=== PATIENT | female | born 2000 | race Caucasian/White ===

== ENCOUNTER → 2021-04-11 | Outpatient (CLI) | payer OTHER ==
[2021-04-11 17:02] LABS: BASO # 0.1 10^3/uL (0.0-0.2); BASO % 0.6 % (0.0-1.0); EOS # 0.1 10^3/uL (0.0-0.5); EOS % 0.6 % (0.0-3.0); HEMATOCRIT 37.9 % (36.0-47.0); HEMOGLOBIN 12.6 g/dl (12.0-15.5); LYMPH # 1.9 10^3/uL (1.5-5.0); LYMPH % 23.4 % (24.0-44.0); MEAN CORPUSCULAR HEMOGLOBIN 29.2 pg (27.0-33.0); MEAN CORPUSCULAR HGB CONC 33.2 g/dl (32.0-36.5); MEAN CORPUSCULAR VOLUME 87.7 fl (80.0-96.0); MONO # 0.5 10^3/uL (0.0-0.8); MONO % 6.8 % (2.0-8.0); NEUTROPHILS # 5.4 10^3/uL (1.5-8.5); NEUTROPHILS % 68.3 % (36.0-66.0); PLATELET COUNT, AUTOMATED 301 10^3/uL (150-450); RED BLOOD COUNT 4.32 10^6/uL (4.00-5.40); WHITE BLOOD COUNT 7.9 10^3/uL (4.0-10.0)
[2021-04-11 18:09] LABS: HIV 1&2 SCREEN CENTAUR NEGATIVE (NEGATIVE)
[2021-04-11 18:27] LABS: GC DNA AMPLIFICATION NEGATIVE (NEGATIVE)
== END ==
LOC: M PLALAB 15:31
PROVIDERS: ATTEND Advanced Practice Midwife
DX: Z34.81 Encounter for supervision of other normal pregnancy, first trimester (principal); Z3A.10 10 weeks gestation of pregnancy

== ENCOUNTER → 2021-06-18 | Outpatient (CLI) | payer OTHER ==
--- NOTE | 2021-06-18 10:34 | REP ---
INDICATION: ANATOMY COMPARISON: None. TECHNIQUE: Transabdominal obstetrical ultrasound with color Doppler evaluation. FINDINGS: Examination demonstrates a single live intrauterine in cephalic presentation. motion is identified by technologist. Placenta is noted anterior and grade 0 without evidence for placenta previa or abruption. Amniotic fluid volume is normal. Cervix measures 4.6 cm in length and appears closed.. Selected gestational age: 20 weeks 0 days with LESLEY 11/05/2021. Gestational age by current measurements 20 weeks 0 days with LESLEY 11/05/2021. FHR equals 142 beats per minute. BPD: 4.6 cm at 20 weeks 0 days HC: 17.5 cm at 20 weeks 0 days AC: 15.3 cm at 20 weeks 4 days FL: 3.2 cm at 20 weeks 0 days HL: 3.0 cm at 19 weeks 5 days HC/AC: 1.14 Estimated weight 342 grams (58thpercentile). Anatomical assessment demonstrates normal structures including cavum, cerebellum/posterior fossa, facial features, lungs, four-chamber heart/ventricular outflow tracts, diaphragm, stomach, cord insertion/three-vessel cord, kidneys/bladder, spine, and extremities. Small left choroid plexus cyst noted. Technologist describes a possibility of "lemon sign" to the cranium but without significant associated abnormalities to the visualized posterior fossa, spinal canal/cord. IMPRESSION: 1. Single live intrauterine in cephalic presentation demonstrating appropriate estimated weight/growth. 2. Small left choroid plexus cyst and the possibility of "lemon sign" to the cranium warrant short-term follow-up re-evaluation. Remainder of the anatomical assessment is complete and normal. <Electronically signed by Joe Jay > 06/18/21 [id number]
== END ==
LOC: M WHC 09:49
PROVIDERS: ATTEND Obstetrics & Gynecology
DX: O28.3 Abnormal ultrasonic finding on antenatal screening of mother (principal); Z36.89 Encounter for other specified antenatal screening; Z3A.20 20 weeks gestation of pregnancy

== ENCOUNTER → 2021-07-18 | Outpatient (CLI) | payer OTHER | LOC: M PLALAB 14:41 | PROVIDERS: ATTEND Advanced Practice Midwife | DX: O28.3 Abnormal ultrasonic finding on antenatal screening of mother (principal) ==

== ENCOUNTER → 2021-08-06 | Outpatient (CLI) | payer OTHER ==
--- NOTE | 2021-08-06 08:37 | REP ---
INDICATION: F/U COMPARISON: 06/18/2021 TECHNIQUE: Transabdominal obstetrical ultrasound with color Doppler evaluation. FINDINGS: Examination demonstrates a single live intrauterine in cephalic presentation. motion is identified by technologist. Placenta is noted anterior and grade 1 without evidence for placenta previa or abruption. Amniotic fluid volume is normal. Cervix measures 4.9 cm in length and appears closed.. Selected gestational age: 27 weeks 0 days with LESLEY 11/05/2021. Gestational age by current measurements 28 weeks 1 day with LESLEY 10/28/2021. FHR equals 129 beats per minute. Estimated weight 1144 grams (73rdpercentile). Anatomical assessment demonstrates normal structures including cranium and the previously questioned "lemon sign" is no longer suggested. Previous choroid plexus cyst resolved. IMPRESSION: Single live intrauterine in cephalic presentation demonstrating appropriate interval growth. No anatomical abnormalities are identified. <Electronically signed by Joe Jay > 08/06/21 0830
== END ==
LOC: M WHC 07:32
PROVIDERS: ATTEND Advanced Practice Midwife
DX: Z34.82 Encounter for supervision of other normal pregnancy, second trimester (principal); Z36.2 Encounter for other antenatal screening follow-up; Z3A.27 27 weeks gestation of pregnancy

== ENCOUNTER → 2021-09-03 | Outpatient (CLI) | payer OTHER ==
[2021-09-03 14:22] LABS: HEMOGLOBIN 11.2 g/dl (12.0-15.5); MEAN CORPUSCULAR HEMOGLOBIN 29.7 pg (27.0-33.0); MEAN CORPUSCULAR HGB CONC 32.9 g/dl (32.0-36.5); MEAN CORPUSCULAR VOLUME 90.2 fl (80.0-96.0); PLATELET COUNT, AUTOMATED 286 10^3/uL (150-450); RED BLOOD COUNT 3.77 10^6/uL (4.00-5.40); WHITE BLOOD COUNT 7.6 10^3/uL (4.0-10.0)
== END ==
LOC: M PLALAB 09:50
PROVIDERS: ATTEND Advanced Practice Midwife
DX: Z34.83 Encounter for supervision of other normal pregnancy, third trimester (principal); Z3A.31 31 weeks gestation of pregnancy; Z36.89 Encounter for other specified antenatal screening
CPT/HCPCS: 36415; 82950; 85027; 86850; 86900; 86901; 90471; 90715; G0463

== ENCOUNTER → 2021-10-08 | Outpatient (REF) | payer OTHER | LOC: M SFHCWAGY 16:55 | PROVIDERS: ATTEND Specialist | DX: Z34.03 Encounter for supervision of normal first pregnancy, third trimester (principal); Z36.85 Encounter for antenatal screening for Streptococcus B; Z3A.36 36 weeks gestation of pregnancy | CPT/HCPCS: 87081; 87186; G0463 ==

== ENCOUNTER 2021-11-06 18:25 | Inpatient (IN) | payer OTHER ==
[~2021-11-06] VITALS: Ht 180.3 cm; Wt 96.8 kg
[2021-11-06] MEDS ORDERED: PRENTAB9 PO (18:58)
[2021-11-06] MEDS ORDERED: TUMS500C PO (18:59)
[2021-11-06] MEDS ORDERED: HOME MED LIST COMPLETE! XX SCH (19:00)
[2021-11-06 19:11] VITALS: BP 136/85
[2021-11-06 20:21] VITALS: BP 135/78
[2021-11-06 21:24] LABS: HEMATOCRIT 36.6 % (36.0-47.0); HEMOGLOBIN 12.4 g/dl (12.0-15.5); MEAN CORPUSCULAR HEMOGLOBIN 28.9 pg (27.0-33.0); MEAN CORPUSCULAR HGB CONC 33.9 g/dl (32.0-36.5); MEAN CORPUSCULAR VOLUME 85.3 fl (80.0-96.0); PLATELET COUNT, AUTOMATED 275 10^3/uL (150-450); RED BLOOD COUNT 4.29 10^6/uL (4.00-5.40); WHITE BLOOD COUNT 10.8 10^3/uL (4.0-10.0)
[2021-11-06 22:22] VITALS: BP 144/85
[2021-11-06] MEDS ORDERED: BUTORPHANOL 2 MG/ML INJ (J0595) IV ONE (22:35)
[2021-11-06] MEDS ORDERED: PROMETHAZINE INJ 25 MG/ML VIAL (J2550) IV ONE (22:35)
[2021-11-06 23:29] VITALS: BP 135/62
[2021-11-07] VITALS (16 sets, daily range): BP systolic 116–159; BP diastolic 55–93
[2021-11-07] MEDS: LR 1,000 ML IV SCH ×2 (02:16→09:50)
[2021-11-07] MEDS: OXYTOCIN DRIP 30 UNITS in IV 1 EA IV SCH ×2 (02:16→13:51)
[2021-11-07] MEDS ORDERED: FENTANYL 2MCG/ML ROPIVACAINE 0.2% IN 0.9% NACL 100ML IVBAG As Ordered ONE (04:50)
[2021-11-07] MEDS ORDERED: PENICILLIN G POTASSIUM IV 5 MU in D5W MINI-BAG PLUS 100 ML IV STA (06:04)
[2021-11-07] MEDS ORDERED: EPIDURAL COMMENT XX SCH (06:15)
[2021-11-07] MEDS ORDERED: ONDANSETRON 4MG/2ML VIAL IV PRN (06:15)
[2021-11-07] MEDS ORDERED: diphenhydrAMINE 50MG/ML VIAL (J1200) IV PRN (06:15)
[2021-11-07] MEDS ORDERED: EPIDURAL/PCA KEYS XX PRN (06:15)
[2021-11-07] MEDS ORDERED: LACTATED RINGER'S 1000 ML IV PRN (06:15)
[2021-11-07] MEDS ORDERED: NALOXONE INJ 0.4MG/1ML VIAL (J2310 PER 1MG) IV PRN (06:15)
[2021-11-07] MEDS ORDERED: FENTANYL/ROPIVACAINE/NACL BAG 100 ML EPIDURAL SCH (06:15)
[2021-11-07] MEDS ORDERED: ePHEDrine SULFATE 25 MG/5 ML(5MG/ML) SYRINGE IV PRN (06:15)
[2021-11-07] MEDS ORDERED: REFRIGERATOR IV KEYS XX PRN (06:15)
[2021-11-07] MEDS ORDERED: PENICILLIN G POTASSIUM IV 2.5 MU in IV 1 EA IV SCH (10:00)
[2021-11-07] MEDS ORDERED: RHOGAM 300 MCG (1500 IU) INJ (J2790) IM SCH (15:05)
[2021-11-07] MEDS ORDERED: MOM 30ML SUSPENSION UDC PO PRN (15:05)
[2021-11-07] MEDS ORDERED: IBUPROFEN 800 MG TAB PO PRN ×2 (15:05)
[2021-11-07] MEDS ORDERED: OXYTOCIN DRIP 30 UNITS in IV 1 EA IV SCH (15:05)
[2021-11-07] MEDS ORDERED: METHYLERGONOVINE MALEATE 0.2 MG TAB PO PRN (15:05)
[2021-11-07] MEDS ORDERED: ACETAMINOPHEN 500 MG TAB PO PRN ×2 (15:05)
[2021-11-07] MEDS ORDERED: IBUPROFEN 600MG TAB PO PRN ×2 (15:05)
[2021-11-07] MEDS ORDERED: MEASLES,MUMPS,RUBELLA VACCINE INJ (MMR-II) (90707) SC SCH (15:05)
[2021-11-07] MEDS ORDERED: DIBUCAINE 1% OINTMENT 30GM TOP PRN (15:05)
[2021-11-07] MEDS ORDERED: ACETAMINOPHEN TAB 650MG DOSE (2X325MG) PO PRN ×2 (15:05)
[2021-11-08 05:52] VITALS: BP 124/58
[2021-11-08] MEDS ORDERED: PRENATAL VITAMINS CHEWABLE TABLET PO SCH (09:00)
[2021-11-08] MEDS: PRENATAL VITAMINS CHEWABLE TABLET PO SCH (09:51)
[2021-11-08 17:42] VITALS: BP 122/72
[2021-11-08] MEDS: DOCUSATE SODIUM 100MG CAPSULE PO PRN (23:51)
[2021-11-09 06:00] VITALS: BP 112/59
[2021-11-09] MEDS: PRENATAL VITAMINS CHEWABLE TABLET PO SCH (09:23)
[2021-11-09] MEDS: DOCUSATE SODIUM 100MG CAPSULE PO PRN (09:39)
== END 2021-11-09 14:50 | disposition home or self-care (01) | DRG 807 ==
LOC: M LDO 18:25 → M LDI 20:43 → M OBS 11-07 16:31
PROVIDERS: ADMIT Specialist; ATTEND Obstetrics & Gynecology
PROC: 10E0XZZ Delivery of Products of Conception, External Approach (ICD-10-PCS; principal; 2021-11-07)
PROC: 0HQ9XZZ Repair Perineum Skin, External Approach (ICD-10-PCS; 2021-11-07)
DX: O48.0 Post-term pregnancy (principal); Z37.0 Single live birth; Z3A.40 40 weeks gestation of pregnancy; O99.824 Streptococcus B carrier state complicating childbirth; O70.0 First degree perineal laceration during delivery

== ENCOUNTER → 2022-04-22 | Outpatient (REF) | payer OTHER ==
[~2022-04-22] MED LIST: PRENTAB9 PO; TUMS500C PO
== END ==
LOC: M PLALAB 10:18
PROVIDERS: ATTEND Obstetrics & Gynecology
DX: Z12.4 Encounter for screening for malignant neoplasm of cervix (principal)
CPT/HCPCS: G0123; G0463

== ENCOUNTER 2022-08-05 17:55 | Emergency (ER) | payer OTHER ==
[~2022-08-05] VITALS: Ht 180.3 cm; Wt 69.8 kg
[2022-08-05] MEDS ORDERED: IBUP200C25 PO (18:24)
[2022-08-05 19:23] LABS: BASO % 0.4 % (0.0-1.0); HEMATOCRIT 39.8 % (36.0-47.0); HEMOGLOBIN 13.2 g/dl (12.0-15.5); LYMPH % 8.9 % (24.0-44.0); MEAN CORPUSCULAR HEMOGLOBIN 28.4 pg (27.0-33.0); MEAN CORPUSCULAR HGB CONC 33.2 g/dl (32.0-36.5); MEAN CORPUSCULAR VOLUME 85.8 fl (80.0-96.0); MONO # 0.3 10^3/uL (0.0-0.8); MONO % 2.8 % (2.0-8.0); NEUTROPHILS # 9.7 10^3/uL (1.5-8.5); NEUTROPHILS % 87.6 % (36.0-66.0); PLATELET COUNT, AUTOMATED 317 10^3/uL (150-450); RED BLOOD COUNT 4.64 10^6/uL (4.00-5.40); WHITE BLOOD COUNT 11.1 10^3/uL (4.0-10.0)
[2022-08-05 19:55] LABS: HCG, SERUM QUALITATIVE NEGATIVE (NEGATIVE)
[2022-08-05] MEDS ORDERED: NS 1,000 ML IV ONE (19:55)
[2022-08-05] MEDS ORDERED: KETOROLAC 30 MG/ML 1ML VIAL IV ONE (20:10)
[2022-08-05 20:13] LABS: ALBUMIN 4.5 G/DL (3.2-5.2); ALT/SGPT 11 U/L (7.0-40); BILIRUBIN,DIRECT 0.3 MG/DL (<0.4); BILIRUBIN,TOTAL 1.1 MG/DL (0.3-1.2); BLOOD UREA NITROGEN 19 MG/DL (9-23); CALCIUM LEVEL 9.1 MG/DL (8.5-10.1); CARBON DIOXIDE LEVEL 24 MMOL/L (20-31); CHLORIDE LEVEL 105 MMOL/L (98-107); CREATININE FOR GFR 0.87 MG/DL (0.55-1.30); GLOMERULAR FILTRATION RATE > 60.0 (>60); GLUCOSE, FASTING 99 MG/DL (60-100); LIPASE 40 U/L (12-53); POTASSIUM SERUM 4.2 MMOL/L (3.5-5.1); SODIUM LEVEL 140 MMOL/L (136-145); TOTAL PROTEIN 7.3 G/DL (5.7-8.2)
[2022-08-05] MEDS ORDERED: KETO10TAB PO (21:27)
[2022-08-05] MEDS ORDERED: FLOM0.4C39 PO (21:27)
[2022-08-05 21:35] VITALS: BP 134/68
== END 2022-08-05 21:43 | disposition home or self-care (01) ==
LOC: M ED 17:55
DX: N13.2 Hydronephrosis with renal and ureteral calculous obstruction (principal); Z88.5 Allergy status to narcotic agent
CPT/HCPCS: 74176; 80048; 80076; 81000; 83690; 84703; 85025; 96361; 96374; 99284; J1885

== ENCOUNTER → 2022-08-30 | Outpatient (REF) | payer OTHER ==
[~2022-08-30] MED LIST changes: +FLOM0.4C39 PO; +IBUP200C25 PO; +KETO10TAB PO
== END ==
LOC: M SMT 09:54
PROVIDERS: ATTEND Physician Assistant
DX: N20.1 Calculus of ureter (principal)